=== PATIENT | female | born 1995 | race Caucasian/White ===

== ENCOUNTER 2017-05-17 09:06 | Emergency (ER) | payer BC ==
[~2017-05-17] VITALS: Ht 172.7 cm; Wt 67.0 kg
[2017-05-17] MEDS ORDERED: FAMOTIDINE 20 MG TABLET ONE (09:53)
[2017-05-17 09:57] VITALS: BP 132/85
[2017-05-17] MEDS ORDERED: FAMOTIDINE 20 MG TABLET PO ONE (10:00)
== END 2017-05-17 10:18 | disposition home or self-care (01) ==
LOC: ED 10:10
DX: L50.1 Idiopathic urticaria (principal); B09 Unspecified viral infection characterized by skin and mucous membrane lesions
CPT/HCPCS: 99284; J7512; Q0177

== ENCOUNTER 2018-01-19 07:44 | Emergency (ER) | payer BC ==
[~2018-01-19] VITALS: Ht 172.7 cm; Wt 64.0 kg
[2018-01-19 07:53] VITALS: BP 127/78
== END 2018-01-19 08:40 | disposition left against medical advice (07) ==
LOC: ED 08:33
DX: R06.02 Shortness of breath (principal); R07.9 Chest pain, unspecified; Z53.21 Procedure and treatment not carried out due to patient leaving prior to being seen by health care provider
CPT/HCPCS: 93005; 99281

== ENCOUNTER 2018-07-12 23:37 | Emergency (ER) | payer BC, OTHER ==
[~2018-07-12] VITALS: Ht 172.7 cm; Wt 62.7 kg
[2018-07-12 23:38] VITALS: BP 142/92
[2018-07-13] MEDS ORDERED: PROCHLORPERAZINE 5 MG/ML, 2ML ONE (00:12)
[2018-07-13] MEDS ORDERED: ACETAMINOPHEN 500 MG TABLET ONE (00:12)
[2018-07-13] MEDS ORDERED: KETOROLAC 30 MG/1 ML ONE (00:12)
[2018-07-13 00:26] LABS: BASOPHILS # (AUTO) 0.06 x10^3/uL (0-0.1); BASOPHILS % (AUTO) 1 % (0-1); EOSINOPHILS # (AUTO) 0.48 x10^3/uL (0-0.4); EOSINOPHILS % (AUTO) 5 % (1-7); LYMPHOCYTES # (AUTO) 2.67 x10^3/uL (1-3.4); LYMPHOCYTES % (AUTO) 30 % (22-44); MD NO; MEAN CORPUSCULAR HEMOGLOBIN 31.8 pg (27.0-34.8); MEAN CORPUSCULAR HGB CONC 33.8 g/dL (32.4-35.8); MEAN PLATELET VOLUME 8.9 fL (7.4-10.4); MONOCYTES # (AUTO) 0.58 x10^3/uL (0.2-0.8); MONOCYTES % (AUTO) 7 % (2-9); NEUTROPHILS # (AUTO) 5.11 x10^3/uL (1.8-6.8); NEUTROPHILS % (AUTO) 57 % (42-75); PLATELET COUNT 377 x10^3/uL (130-400); RED BLOOD COUNT 4.04 x10^6/uL (3.82-5.3); RED CELL DISTRIBUTION WIDTH 11.9 % (9.6-15.2)
[2018-07-13] MEDS ORDERED: KETOROLAC 30 MG/1 ML IVPush ONE (00:30)
[2018-07-13] MEDS ORDERED: PROCHLORPERAZINE 5 MG/ML, 2ML IVPush ONE (00:30)
[2018-07-13] MEDS ORDERED: ACETAMINOPHEN 325 MG TABLET PO ONE (00:30)
[2018-07-13] MEDS ORDERED: SODIUM CHLORIDE 0.9% 1,000ML IVBOLUS ONE (00:30)
[2018-07-13 00:34] LABS: ALBUMIN 3.7 g/dL (3.4-5.0); ANION GAP 8 mmol/L (5-15); CALCIUM 8.3 mg/dL (8.5-10.1); CHLORIDE 111 mmol/L (98-107); CREATININE 0.71 mg/dL (0.55-1.02)
--- NOTE | 2018-07-13 00:46 | NUR ---
THIS RN TO ACCOMPLISH EKG. PT STATES SHE WOULD PREFER A FEMALE. [place] TO DO EKG AND PT STATES SHE REFUSES EKG. PT EDUCATED AND STILL REFUSING. NOTIFIED. PT STATES "I WOULD JUST LIKE TO GO HOME."
--- NOTE | 2018-07-13 00:54 | NUR ---
PT STATES FEELING MUCH BETTER FROM MEDICATION AND DOES NOT WANT ANY FURTHER TESTING AND WANTS TO GO HOME. PT EDUCATED AND STILL REFUSING. AWARE. 2C.
== END 2018-07-13 01:09 | disposition left against medical advice (07) ==
LOC: ED 23:52
DX: R51 Headache (principal); H53.149 Visual discomfort, unspecified; R11.0 Nausea
CPT/HCPCS: 36415; 80048; 82040; 84703; 85025; 96374; 96375; 99284; J0780; J1885; J7030

== ENCOUNTER 2018-09-19 23:08 | Emergency (ER) | payer OTHER ==
[~2018-09-19] VITALS: Ht 177.8 cm; Wt 65.0 kg
[2018-09-19] MEDS ORDERED: ONDANSETRON ODT 4 MG ONE (23:25)
[2018-09-19] MEDS ORDERED: ONDANSETRON ODT 4 MG PO ONE (23:30)
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
[2018-09-19 23:51] LABS: BASOPHILS # (AUTO) 0.07 x10^3/uL (0-0.1); BASOPHILS % (AUTO) 1 % (0-1); EOSINOPHILS # (AUTO) 0.38 x10^3/uL (0-0.4); EOSINOPHILS % (AUTO) 6 % (1-7); LYMPHOCYTES # (AUTO) 2.85 x10^3/uL (1-3.4); LYMPHOCYTES % (AUTO) 41 % (22-44); MD NO; MEAN CORPUSCULAR HEMOGLOBIN 31.6 pg (27.0-34.8); MEAN CORPUSCULAR HGB CONC 33.9 g/dL (32.4-35.8); MEAN CORPUSCULAR VOLUME 93.2 fL (80-100); MEAN PLATELET VOLUME 8.8 fL (7.4-10.4); MONOCYTES # (AUTO) 0.51 x10^3/uL (0.2-0.8); MONOCYTES % (AUTO) 7 % (2-9); NEUTROPHILS # (AUTO) 3.17 x10^3/uL (1.8-6.8); NEUTROPHILS % (AUTO) 45 % (42-75); PLATELET COUNT 254 x10^3/uL (130-400); RED BLOOD COUNT 4.26 x10^6/uL (3.82-5.3); RED CELL DISTRIBUTION WIDTH 12.3 % (9.6-15.2)
[2018-09-19 23:58] LABS: ALBUMIN 3.8 g/dL (3.4-5.0); ANION GAP 5 mmol/L (5-15); CALCIUM 8.2 mg/dL (8.5-10.1); CHLORIDE 116 mmol/L (98-107); CREATININE 0.83 mg/dL (0.55-1.02)
[2018-09-19 23:59] LABS: SALICYLATE LEVEL < 1.7 mg/dL (2.8-20.0)
[2018-09-20 00:04] LABS: ACETAMINOPHEN < 2 mcg/mL (10-30)
--- NOTE | 2018-09-20 00:57 | NUR ---
PT SLEEPING WITH BOYFRIEND AT SIDE. VSS. UPDATED BOYFRIEND ON POC
--- NOTE | 2018-09-20 01:33 | NUR ---
PT AWAKE AND REQUESTING TO LEAVE. PT WAS ABLE TO STAND AND WALK INDEPENDENTLY. MD INFORMED, PT TBDC
[2018-09-20 01:41] VITALS: BP 120/74
== END 2018-09-20 01:44 | disposition home or self-care (01) ==
LOC: ED 09-20 00:29
DX: F10.120 Alcohol abuse with intoxication, uncomplicated (principal); G31.2 Degeneration of nervous system due to alcohol
CPT/HCPCS: 36415; 80048; 80307; 80329; 82040; 84703; 85025; 99283; G0480